=== PATIENT | female | born 1945 | race American Indian/Alaskan Native ===

== ENCOUNTER 2018-05-14 13:05 | Outpatient (CLI) | payer MEDICARE, OTHER | END 2018-05-14 13:06 | disposition home or self-care (01) | LOC: C.DIABED 13:05 | DX: E66.01 Morbid (severe) obesity due to excess calories (principal); Z71.3 Dietary counseling and surveillance ==

== ENCOUNTER 2018-06-04 13:55 | Outpatient (CLI) | payer MEDICARE, OTHER | END 2018-06-04 13:56 | disposition home or self-care (01) | LOC: C.DIABED 13:55 ==

== ENCOUNTER 2018-07-09 13:53 | Outpatient (CLI) | payer MEDICARE, OTHER | END 2018-07-09 13:54 | disposition home or self-care (01) | LOC: C.DIABED 13:53 ==